=== PATIENT | male | born 1980 | race Caucasian/White ===

== ENCOUNTER 2019-08-22 12:57 | Outpatient (CLI) | payer BC, SELFPAY ==
--- NOTE | ~2019-08-22 | US_ITS ---
EXAMINATION: US carotid duplex BI DATE: 08/22/2019 13:59 INDICATION: Carotid bruit TECHNIQUE: Grayscale, color Doppler, and pulsed Doppler images of the cervical carotid arteries were obtained. The degree of vessel stenosis is placed in one of the following categories: normal, <50%, 5 0-69%, >=70% but less than near-occlusion, near-occlusion, or total occlusion. Note that percent sten osis relative to normal distal artery lumen diameter is indirectly measured from velocity measurement s as described by Sid, et al. Radiology 2003; 229:340-346. Notes: Normal: Peak systolic velocity <125 centimeters/sec and no plaque <50%. Peak systolic velocity <125 ( EDV <40; ICA/CCA PSV ratio <2.0; used these factors only a tandem lesions or low cardiac output or co ntralateral disease) 50-69 %: PSV 125-230 (EDV 40-100; ratio 2-4) >= 70% but less than near occlusion: PSV greater than 230 (EDV > 100; ratio> 4.0) Near Occlusion: PSV that is variable; markedly narrowed lumen Occlusion: Absent flow on color/spectral Doppler and no lumen on turk scale. COMPARISON: None. FINDINGS: RIGHT: The right common carotid artery (CCA) peak systolic velocity (PSV) is 113 cm/s. The right internal ca rotid artery (ICA) PSV is 105 cm/s. The right ICA end-diastolic velocity (EDV) is 28 cm/s. The right ICA/CCA PSV ratio is 0.9. The external carotid artery (ECA) PSV is 110 cm/s. There is antegrade flow in the right vertebral artery. LEFT: The left CCA PSV is 87 cm/s. The left ICA PSV is 87 cm/s. The left ICA EDV is 30 cm/s. The left ICA/C CA PSV ratio is 1.0. The ECA PSV is 68 cm/s. There is antegrade flow in the left vertebral artery. IMPRESSION: 1. Less than 50% stenosis in the right internal carotid artery by sonographic criteria. 2. Less than 50% stenosis in the left internal carotid artery by sonographic criteria. Reviewed, dictated and finalized at location A. IMPRESSION: 1. Less than 50% stenosis in the right internal carotid artery by sonographic chase bertrand. 2. Less than 50% stenosis in the left internal carotid artery by sonographic rian martinez.
== END 2019-08-22 12:58 | disposition home or self-care (01) ==
PROVIDERS: PCP Physician Assistant; Visit Provider Physician Assistant
DX: R22.1 Localized swelling, mass and lump, neck (principal); I65.23 Occlusion and stenosis of bilateral carotid arteries
CPT/HCPCS: 93880

== ENCOUNTER 2019-08-23 14:39 | Outpatient (CLI) | payer BC, SELFPAY ==
--- NOTE | 2019-08-23 14:58 | ECG_ITS ---
Measurements Intervals [place] Rate: 69 P: 38 NV: 168 QRS: 37 QRSD: 96 T: 6 QT: 379 QTc: 408 Interpretive Statements SINUS RHYTHM NONSPECIFIC T-WAVE ABNORMALITY- INFERIOR LEADS BASELINE ARTIFACT- II, III, AVF BORDERLINE ECG Electronically Signed On 08-23-2019 15:53:46 CDT by Hemal Cesar D.O.
== END 2019-08-23 14:40 | disposition home or self-care (01) ==
LOC: ANHCARD 14:43
PROVIDERS: PCP Physician Assistant; Visit Provider Physician Assistant
DX: R00.2 Palpitations (principal)
CPT/HCPCS: 93005

== ENCOUNTER 2019-10-07 10:24 | Emergency (ER) | payer BC, SELFPAY ==
--- NOTE | ~2019-10-07 | XR_ITS ---
EXAMINATION: XR chest 1V portable INDICATION: Hemoptysis TECHNIQUE: Portable AP chest at 1113 hours COMPARISON: None available FINDINGS: The lungs are free of acute opacities. There is no pleural effusion or pneumothorax. The ca rdiomediastinal silhouette is normal. The visualized bones and soft tissues are unremarkable. IMPRESSION: 1. No acute cardiopulmonary abnormality. Reviewed, dictated and finalized at location A.
--- NOTE | ~2019-10-07 | CT_ITS ---
EXAMINATION: CTA chest PE protocol DATE: 10/07/2019 12:56 INDICATION: Hemoptysis TECHNIQUE: Computed tomography angiography (CTA) of the chest was performed with 100 mL Omnipaque-350 intravenous contrast timed to evaluate the pulmonary arteries. Coronal maximum intensity projection 3D-reconstructions were created by the technologist. The dose-length product (DLP) was 561.28 mGy-cm. Automated exposure control and iterative reconstruction technique were employed. COMPARISON: None. FINDINGS: The pulmonary arteries are well-opacified. No pulmonary embolism is identified. There are m inimal airspace opacities of the lingula and the left lower lobe. No pleural effusion or pneumothorax is identified. There is mild bilateral hilar lymphadenopathy which is likely reactive. The heart siz e is normal. IMPRESSION: 1. No pulmonary embolism. 2. Airspace opacities of the lingula and left lower lobe, consistent with pneumonia. Reviewed, dictated and finalized at location A. IMPRESSION: 1. No pulmonary embolism. 2. Airspace opacities of the lingula and left lower lobe, consistent with pneum onia.
[2019-10-07 10:33] VITALS: BP 156/94; PULSE 70; RESP 18; TEMP 36.6; O2SAT 100
[2019-10-07 10:35] VITALS: O2SAT 100
--- NOTE | 2019-10-07 10:57 | ED.URI ---
HPI - URI/Sore Throat General Chief Complaint: Upper Respiratory Infection Stated Complaint: COUGHING UP BLOOD Time Seen by Provider: 10/07/19 10:37 Source: RN notes reviewed History of Present Illness HPI Narrative: Patient presents emergency department from home for coughing up blood. Patient states symptoms began yesterday. He states he had coughed stretch of mild sputum with blood in the sputum. Denies any fevers or chills, rhinorrhea, sore throat shortness of breath abdominal pain or any other symptoms of concern. Denies any tobacco use. Denies any current blood thinner use Related Data Allergies Allergy/AdvReac Type Severity Reaction Status Date / Time aspirin Allergy Unknown Difficulty Verified 10/07/19 11:08 Breathing ibuprofen Allergy Unknown Hives Verified 10/07/19 11:08 Review of Systems Review of Systems: Narrative: Gen.: Denies fevers or chills Eyes: Denies eye pain or visual change ENT: Denies congestion Respiratory: Denies shortness of breath reports cough and hemoptysis CV: Denies chest pain or palpitations GI: Denies abdominal pain nausea, emesis or diarrhea denies burning, urgency, frequency or hematuria Musculoskeletal: Denies back pain or muscle pain Neuro: Denies numbness, tingling, weakness or focal weakness Skin: Denies rash Except as documented, all other systems reviewed and negative PMFSH Past Medical History Medical History Anterior neck pain Colon cancer screening Encounter to establish care Family history of colon cancer Generalized anxiety disorder Prostate cancer screening 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 Surgical History Surgical History (Updated 08/16/19 @ 11:05 by Luciana Rehman MA) H/O adenoidectomy Family History Family History (Updated 01/10/16 @ 23:19 by DOCTOR UNKNOWN) Father Malignant neoplasm of prostate Mother Family history of malignant neoplasm of breast in first degree relative Social History Social History Smoking status: Never smoker Alcohol intake: never Substance use: never Substance use type: does not use Gender identity (if verbalized by the patient): Male Exam Narrative: Exam Narrative: APPEARANCE: No acute distress, nontoxic, resting in bed EYES: EOMI HEENT: Normocephalic, atraumatic, OMM RESPIRATORY: No respiratory distress Clear to auscultation bilaterally with no rhonchi wheezing or rales. CARDIOVASCULAR: Regular rate and rhythm without murmurs rubs or gallops. ABDOMINAL: Soft, nontender, nondistended, no rebound or guarding MUSCULOSKELETAl: Moves all extremities. No clubbing, cyanosis or edema. NEURO: Awake and alert. Following commands, speech normal, no focal deficits SKIN:: Warm, dry. No rashes lesions or abrasions PSYCHIATRIC: Normal affect/mood, Course Course Emergency Course: Discussed with ALEX Driver patient's PCP. Agrees with plan for discharge at this time with patient on azithromycin follow-up as an outpatient Patient is remained asymptomatic throughout the stay in the ER remained on room air Discussed with patient results of workup and diagnosis. Discussed need for follow-up with primary care, proper use of medication, and reasons to return to the emergency department. Patient understands and agrees to current treatment plan. Discussed with patient need for self quarantine concern of possible COVID and reasons to return Vital Signs Vital signs: Vital Signs Temperature 97.9 F 10/07/19 10:33 Pulse Rate 70 10/07/19 10:33 Respiratory Rate 18 10/07/19 10:33 Blood Pressure 156/94 H 10/07/19 10:33 Pulse Oximetry 100 10/07/19 10:33 Temperature 97.9 F 10/07/19 10:33 Pulse Rate 70 10/07/19 10:33 Respiratory Rate 18 10/07/19 10:33 Blood Pressure 156/94 H 10/07/19 10:33 Pulse Oximetry 100 10/07/19 10:35 MDM - URI/Sore Throat Lab D
[2019-10-07 11:27] LABS: Basophils Percent Auto 1.1 % (0.2-1.2); Eosinophils Absolute Auto 0.2 K/mm3 (0-0.3); Eosinophils Percent Auto 4.2 % (0-4.4); Hematocrit 41.9 % (42.0-52.0); Hemoglobin 14.5 g/dL (14.0-18.0); Immature Granulocyte Absolute 0.01 K/mm3 (0.00-0.031); Immature Granulocyte Percent A 0.3 % (0-0.5); Lymphocytes Absolute Auto 0.99 K/mm3 (0.9-3.2); Lymphocytes Percent Auto 26.1 % (18.3-44.2); Mean Corpuscular HGB Conc 34.6 g/dl (32-36); Mean Corpuscular Hemoglobin 30.9 pg (26-34); Mean Corpuscular Volume 89.3 fl (80-100); Mean Platelet Volume 10.5 fl (7.4-10.4); Monocytes Absolute Auto 0.4 K/mm3 (0.1-0.6); Monocytes Percent Auto 10.3 % (2.6-8.5); Neutrophils Absolute Auto 2.2 K/mm3 (1.3-6.7); Platelet Count Result 196 k/mm3 (150-375); Red Blood Count 4.69 M/mm3 (4.6-6.20); White Blood Count 3.8 K/mm3 (4.5-10.0)
[2019-10-07 11:37] LABS: Prothrombin Time 12.4 Seconds (11.1-14.7)
[2019-10-07 11:38] LABS: Partial Thromboplastin Time 27.8 SECONDS (22.3-36.8)
[2019-10-07 12:06] LABS: Alanine Aminotransferase 16 U/L (4-50); Albumin Level 4.3 g/dL (3.5-5.1); Alkaline Phosphatase 44 U/L (38-126); Aspartate Amino Transferase 23 U/L (17-59); Bilirubin,Total 0.7 mg/dL (0.2-1.3); Blood Urea Nitrogen 15 mg/dL (9-20); Calcium 8.9 mg/dL (8.4-10.2); Carbon Dioxide 29 mmol/L (22-30); Chloride 101 mmol/L (98-107); Estimated CRCL calculation 123 ml/min; Estimated Glomerular Filt Rate > 60; Glucose 101 mg/dL (75-110); Potassium 3.5 mmol/L (3.4-5.0); Sodium 136 mmol/L (137-145)
[2019-10-07] MEDS: AZITHROMYCIN 250 MG TABLET 500 MG PO (14:17)
[2019-10-07 14:34] VITALS: BP 127/80; PULSE 80; RESP 20; TEMP 37.1; O2SAT 99
[2019-10-09 12:17] LABS: SARS-CoV-2 RNA PCR Negative
== END 2019-10-07 14:36 | disposition home or self-care (01) ==
PROVIDERS: Emergency Provider Emergency Medicine; PCP Physician Assistant
DX: J18.9 Pneumonia, unspecified organism (principal); Z20.828 Contact with and (suspected) exposure to other viral communicable diseases
CPT/HCPCS: 36415; 71045; 71275; 80053; 85025; 85610; 85730; 87635; 99284; A9270; C9803; Q9967; U0003